=== PATIENT | male | born 1980 | race Caucasian/White ===

== ENCOUNTER 2018-07-19 20:41 | Emergency (ER) | payer OTHER ==
[2018-07-19 20:56] VITALS: BP 129/81
[2018-07-19] MEDS ORDERED: HYOSCYAMINE SULFATE 0.125 MG TAB PO ONE (21:05)
[2018-07-19] MEDS ORDERED: ONDANSETRON 4MG PREPACK#2 BTL TAKEHOME ONE (21:05)
--- NOTE | 2018-07-19 21:08 | EDPHY ---
H & P Time Seen by Provider: 07/19/18 20:50 HPI/ROS: This patient complains of diarrhea of 2 and half days duration described as watery and loose with approximately 10 episodes today despite Imodium. He also had nausea proceeding 2 days but limited nausea today. He still tolerating good p. O. Intake of fluids has been drinking coconut water primarily to hydrate. He had some mild subjective chills last night no documented fevers at home. He has associated fatigue today. Bothered by the symptoms while trying to work he decided to come in for evaluation tonight, arriving by private vehicle. ROS: Constitutional: No high fevers. Mild malaise HEENT: He has noticed any cold symptoms Cardiovascular: No lightheadedness. GI: Mild cramping 2/10 intensity diffuse in location. No bloody stools. Again nausea but no vomiting. : No urinary symptoms or flank pain. 5 point review of symptoms is performed and otherwise negative with exception of pertinent positives and negatives listed in HPI and ROS Past Medical/Surgical History: Otherwise healthy though he admits that he occasionally gets IBS like symptoms he has not been formally diagnosed with IBS Social History: His and 2-year-old boy a recently had viral upper respiratory illnesses. They did not have any GI symptoms with her illnesses No foreign travel recently. No suspect food ingestion Smoking Status: Never smoked Physical Exam: General Appearance: Alert, no distress. Eyes: Pupils equal and round no pallor or injection. ENT, Mouth: Mucous membranes moist. Respiratory: There are no retractions, lungs are clear to auscultation. Cardiovascular: Regular rate and rhythm. Gastrointestinal: Hyperactive bowel sounds, soft, nontender Neurological: GCS 15 Skin: Warm and dry, no rashes. Musculoskeletal: Neck is supple nontender. Extremities are symmetrical, full range of motion. Psychiatric: Mood and affect are normal DIFFERENTIAL DIAGNOSIS: After history and physical exam differential diagnosis was considered for viral gastroenteritis, food poisoning, IBS Constitutional: Initial Vital Signs Temperature (C) 36.6 C 07/19/18 20:52 Heart Rate 67 07/19/18 20:52 Respiratory Rate 18 07/19/18 20:52 Blood Pressure 129/81 H 07/19/18 20:52 O2 Sat (%) 95 07/19/18 20:52 O2 Delivery Mode Room Air Allergies/Adverse Reactions: Sulfa (Sulfonamide Antibiotics) Allergy (Verified 07/19/18 20:51) Home Medications: Medication Instructions Recorded Hyoscyamine Sulfate [Levsin, 0.125 - 0.25 mg SL Q6 PRN #20 tab 07/19/18 Hyomax-Sl 0.125 mg (*)] Imodium A-D 07/19/18 MDM/Departure - MDM Medications Given: Discontinued Medications Hyoscyamine Sulfate (Levsin, Hyomax-Sl) 0.125 mg PO EDNOW ONE Stop: 07/19/18 21:06 Last Admin: 07/19/18 21:16 Dose: 0.125 mg Ondansetron HCl (Zofran Odt 4 Mg Prepack#2) 1 btl TAKEHOME EDNOW ONE Stop: 07/19/18 21:06 Last Admin: 07/19/18 21:17 Dose: 1 btl ED Course/Re-evaluation: Levsin p. O. With relief of cramping The patient is offered an IV in hydration with lab workup but declines. Discussion: Patient with the diarrhea nausea this likely attributable to a viral gastroenteritis given his family's recent viral URIs. I counseled regarding this. Clinically does not have evidence of significant dehydration. He has a benign belly exam but does have hyperactive bowel sounds consistent with diagnosis. Will treat him with Zofran and Levsin. He understands need to return emergency department should he develop additional or worsening symptoms despite treatment plan. - Depart Disposition: Home, Routine, Self-Care Clinical Impression: Nausea Diarrhea Qualifiers: Diarrhea type: unspecified type Qualified Code(s): R19.7 - Diarrhea, unspecified Condition: Good Instructions: Gastroenteritis (ED) Additional Instructions: Diagnosis: 1. Diarrhea 2. Nausea You likely have a viral gastroenteritis. The same viruses that cause common cold can cause nausea and/or vomiting and diarrhea and other people. Plan: Continue your good hydration orally. Zofran if needed for nausea Light diet-bananas, rice, applesauce, soup, toast and similar until he feel improved Levsin for cramping as needed. Typically the symptoms resolve over the course of 48-72 hours. Return if he develops any significant worsening of her symptoms despite the treatment plan. Follow-up with Dr. Chan for any ongoing symptoms despite treatment plan Prescriptions: Hyoscyamine Sulfate [Levsin, Hyomax-Sl 0.125 mg (*)] 0.125 - 0.25 mg SL Q6 PRN # 20 tab PRN Reason: abdominal cramping Referrals: NONE *PRIMARY CARE P,. [Primary Care Provider] - As per Instructions Dalila Puckett MD [[facility] [place] Primary Care Provider] - As per Instructions
== END 2018-07-19 21:26 | disposition home or self-care (01) ==
LOC: CED 20:41
DX: R19.7 Diarrhea, unspecified (principal); R11.0 Nausea